=== PATIENT | female | born 2000 | race Caucasian/White ===

== ENCOUNTER → 2018-05-24 | Outpatient (CLI) | payer SELFPAY ==
[~2018-05-24] MED LIST: BENZ100C4 PO; NORG1TAB74 PO
--- NOTE | 2018-05-24 18:20 | RADIOLOGY IMAGING REPORT ---
[place]AC[place] [facility] [place] NAME: Kristine Kent : 2000 MR: [id number] V: [id number] EXAM DATE: ORDERING PHYSICIAN: ASHLYN LOPEZ TECHNOLOGIST: Location: [facility] - [place] Patient: Kristine Kent : 2000 Visit/Account:[id number] Date of Sevice: 05/24/2018 WRIST RIGHT MIN 3 VIEW COMPARISONS: None. ADDITIONAL PERTINENT HISTORY: Fall on right wrist. FINDINGS: Osseous structures: Negative. Joint spaces: Negative. Surrounding soft tissues: Negative. IMPRESSION: Normal views of the right wrist. Report Dictated By: Nicholas Mejia MD at 05/24/2018 6:16 PM Report E-Signed By: Nicholas Mejia MD at 05/24/2018 6:17 PM WSN:[id number]
== END ==
LOC: RAD 16:35
PROVIDERS: ATTEND Chiropractor
DX: S69.91XA Unspecified injury of right wrist, hand and finger(s), initial encounter (principal); W09.8XXA Fall on or from other playground equipment, initial encounter

== ENCOUNTER → 2018-10-13 | Outpatient (REF) ==
--- NOTE | 2018-10-13 11:42 | RADIOLOGY IMAGING REPORT ---
FACILITY: [facility] - [place] PATIENT NAME: Kristine Kent : 2000 MR: [id number] V: [id number] EXAM DATE: ORDERING PHYSICIAN: ETTA ARREAGA TECHNOLOGIST: Location: [facility] Patient: Kristine Kent : 2000 Visit/Account:[id number] Date of Sevice: 10/13/2018 SHOULDER MIN 2 VIEWS LEFT Indication: Left shoulder pain. Pain down to elbow for 5 weeks, no trauma. Comparison: None. Findings: The left clavicle, scapula, and proximal humerus are intact and demonstrate normal alignmen t. Visualized left ribs are normal. IMPRESSION: Normal left shoulder radiograph. Report Dictated By: Ankur Galvan at 10/13/2018 11:38 AM Report E-Signed By: Ankur Galvan at 10/13/2018 11:39 AM WSN:[id number]
== END ==
LOC: RAD 11:03
PROVIDERS: ATTEND Orthopaedic Surgery Orthopaedic Surgery of the Spine
DX: M25.512 Pain in left shoulder (principal)